=== PATIENT | male | born 1950 | race Caucasian/White ===

== ENCOUNTER 2024-12-27 10:53 | Outpatient (CLI) | payer MEDICARE, SELFPAY ==
--- OUTSIDE RECORDS SUMMARY | 2024-12-27 11:28 | XMS_ITS | Clinical Summary ---
Author Organization [facility] Address [address] [place] [address] Phone Care Team Providers Care Footwear Sales Coordinator Name Role Phone Edison Casas MD Primary Care Provider [phone]- [phone] Allergies No known active allergies Medications amLODIPine (NORVASC) 5 MG Tablet Take 5 mg by mouth daily. 3 Active metFORMIN (GLUCOPHAGE) 500 MG Tablet Take 1,000 mg by mouth. 3 Active ferrous sulfate 325 (65 Fe) MG Tablet Take 325 mg by mouth. 3 Active omeprazole (PriLOSEC) 20 MG CAPSULE DELAYED RELEASE Take by mouth. 3 Active tamsulosin (FLOMAX) 0.4 MG Capsule Take 1 Capsule by mouth daily. 5 Active Tresiba FlexTouch 200 UNIT/ML Solution Pen-injector TAKE 20 UNITS BY SUBCUTANEOUSLY EVERY DAY 3 Active aspirin EC 81 MG Tablet Delayed Response Take 81 mg by mouth. Active Family History Medical History Relation Name Comments Cancer Brother Cancer Father Diabetes Mother Relation Name Status Comments Brother Father Mother Social History Tobacco Use Types Packs/Day Years Used Date Smoking Tobacco: Never Smokeless Tobacco: Never Tobacco Cessation:Counseling Given: Not Answered Alcohol Use Standard Drinks/Week Comments Not Currently 0 (1 standard drink = 0.6 oz pur e alcohol) Sex and Gender Information Value Date Recorded Sex Assigned at Not on file Legal Sex Male 9:00 AM CDT Gender Identity Not on file Sexual Orientation Not on file Last Filed Vital Signs Vital Sign Reading Time Taken Comments Blood Pressure 133/78 08/24/2024 9:52 AM CDT Pulse 75 08/24/2024 9:52 AM CDT Temperature - - Respiratory Rate 14 08/24/2024 9:52 AM CDT Oxygen Saturation 94% 08/24/2024 9:52 AM CDT Inhaled Oxygen Concentration - - Weight 93.9 kg (207 lb) 08/24/2024 9:52 AM CDT Height 182.9 cm (6') 08/24/2024 9:52 AM CDT Body Mass Index 28.07 08/24/2024 9:52 AM CDT Plan of Treatment Upcoming Encounters Date Type Department Care Team (Late st Contact Info) Description 09/06/2025 10:30 AM CDT Office Visit [facility] [address] [place] [address] Jl Shearer MD [address] [facility] [address] [place] [address] Health Maintenance Due Date Last Done Comments Hepatitis C Virus (HCV) Screening 1950 TdaP Immunization 1950 Cologuard 1995 Colonoscopy 1995 Colorectal Cancer Screening 1995 Immunochemical Fecal Occult Blood 1995 Zoster Immunization (1 of 2) 2000 Pneumococcal Immunization (5 0+ years) (2 of 2 - PCV20 or PCV21) 09/28/2015 09/27/2014 SARS-COV-2 Immunization ( season) 2024 Influenza Immunization (#1) 2025 02/20/2014 Respiratory Syncytial Virus (RSV) Immunization (Adult) (1 - 1-dose 75+ series) 2025 Hepatitis B Immunization Aged Out No longer eligible based on patient's age to complete this topic Human Papillomavirus (HPV) Immunization Aged Out No longer eligible b ased on patient's age to complete this topic Meningococcal Immunization (ACWY) Aged Out No longer eligible based on patient's age to complete this topic Rotavirus Immunization Aged Out No lo nger eligible based on patient's age to complete this topic Insurance [facility] Care Teams Footwear Sales Coordinator Relationship Specialty Start Date End Date Edison Casas MD [address] [address] PCP - General Primary Care 08/21/24
[2024-12-28 09:09] LABS: PSA, Free 2.55 ng/mL
== END 2024-12-27 10:54 | disposition home or self-care (01) ==
DX: R97.20 Elevated prostate specific antigen [PSA] (principal)
CPT/HCPCS: 36415; 84153; 84154